=== PATIENT | female | born 1980 | race Caucasian/White ===

== ENCOUNTER → 2017-01-02 | Outpatient (CLI) | payer OTHER ==
[~2017-01-02] MED LIST: CRAN1CAP14 PO; LACT3000 PO; OMEP20TA14 PO; OXYC-57 PO; PSYL48.59 PO
[2017-01-02 18:20] LABS: CHOLESTEROL/HDL RATIO 4.2; THYROID STIMULATING HORMONE 1.78 uIu/ml (0.300-4.500)
== END | disposition home or self-care (01) ==
LOC: C.LABMFLN 12:46
PROVIDERS: ATTEND Family Medicine
DX: R53.83 Other fatigue (principal); Z13.220 Encounter for screening for lipoid disorders

== ENCOUNTER → 2017-04-05 | Outpatient (CLI) | payer OTHER ==
[2017-04-05 17:17] LABS: CALCIUM 8.8 mg/dl (8.5-10.1)
[2017-04-05 17:25] LABS: BLOOD UREA NITROGEN 10 mg/dl (7-18); BUN/CREATININE RATIO 14.1 (10-20); CARBON DIOXIDE 21 mmol/L (21-32); CHLORIDE 108 mmol/L (98-107); CREATININE 0.68 mg/dl (0.60-1.20); GLUCOSE 84 mg/dl (70-99); SODIUM 138 mmol/L (136-145)
== END | disposition home or self-care (01) ==
LOC: C.LAB1850 14:16
PROVIDERS: ATTEND Obstetrics & Gynecology
DX: Z01.818 Encounter for other preprocedural examination (principal)

== ENCOUNTER → 2017-04-05 | Outpatient (CLI) | payer OTHER | END | disposition home or self-care (01) | LOC: C.PAPS 10:02 | PROVIDERS: ATTEND Obstetrics & Gynecology | DX: Z01.419 Encounter for gynecological examination (general) (routine) without abnormal findings (principal) ==

== ENCOUNTER → 2017-04-22 | Day surgery (SDC) | payer OTHER ==
[2017-04-10 11:32] VITALS: Ht 165.1 cm; Wt 81.8 kg
--- NOTE | 2017-04-19 08:16 | HISTORY & PHYSICAL EXAMINATION ---
DATE OF ADMISSION: 04/22/2017 CHIEF COMPLAINT: Desires sterilization. HISTORY OF PRESENT ILLNESS: The patient is a 37-year-old white female, 1, para 0-1-0-1, whose last menstrual period was 03/12/2017. The patient is presently using condoms for contraception. The patient desires permanent sterilization. She has a history of severe preeclampsia with her only and delivered by emergency , prematurely, at 28 weeks. In addition, she had postoperative complications. The patient's last Pap smear was 04/05/2017 and this was negative. ALLERGIES: THE PATIENT LISTS ZITHROMAX, MORPHINE DERIVATIVES INCLUDING VICODIN, NITROFURANTOIN, PENICILLINS, CEFUROXIME IN ADDITION TO LACTOSE AND CAFFEINE. MEDICATIONS: She takes 1 Centrum tablet daily in addition to cranberry plus vitamin C and Lactaid. ILLNESSES: She reports she does have a heart murmur. In addition, a history of migraine headaches and kidney stones. She has had peptic ulcer disease and, as noted above, she has a history of preeclampsia. PAST SURGICAL HISTORY: She has undergone laparoscopic cholecystectomy and appendectomy in addition to the emergency section. FAMILY HISTORY: Her mother had endometriosis. Also, hypertension, kidney stones, multiple sclerosis, history of seizures and alcohol abuse. Her father has a history of alcohol abuse and hypertension. SOCIAL HISTORY: The patient is . She denies smoking cigarettes or drinking alcohol. PHYSICAL EXAMINATION: VITAL SIGNS: Height 5 feet 5 inches, weight 180 pounds. HEENT: Grossly within normal limits. NECK: Supple without masses. CHEST: Her lungs are clear without wheezing. HEART: Regular rate and rhythm. No murmurs, gallops or rubs appreciated. BREASTS: Nontender with no masses palpable. No lymphadenopathy and no skin changes. ABDOMEN: Soft and nontender with no abdominal masses, no hepatosplenomegaly. The patient does have scars from prior surgeries. PELVIC: External genitalia normal. Vagina pink and stimulated. Cervix pink and closed with no lesions visible. Uterus is within normal limits in size and nontender. Adnexa nontender with no masses palpable. EXTREMITIES: No cyanosis, clubbing or edema. IMPRESSION: A 37-year-old white female, 1, para 0-1-0-1, who desires permanent sterilization. PLAN: The patient is for laparoscopic bilateral tubal sterilization by ring placement, bipolar cauterization or excision. The patient is aware of the risks of bleeding, infection, injury to internal organs, risk of ectopic , possible failure of the procedure, risk of additional surgery or treatment, re-hospitalization and also regret of having the procedure done. She is aware of the alternatives of using other methods of contraception and the alternatives of doing nothing. The patient wishes to proceed with the laparoscopic tubal as planned. LISETTE
[~2017-04-22] VITALS: Ht 165.1 cm; Wt 81.8 kg
[~2017-04-22] MED LIST changes: +ATROPINE SULFATE 0.1 MG/ML 5ML SYR IV PRN; +BUPIVACAINE 0.5 % 5 MG/1 ML MPF 30ML VIAL ONE; +DEXAMETHASONE SOD INJ 4 MG/ML VIAL ONE; +EpHEDrine SULFATE 50MG/5ML SYR ONE; +EpHEDrine SULFATE INJ 50 MG/ML AMP IV PRN; +FENTANYL CITRATE INJ 50 MCG/1 ML 2 ML VIAL IV PRN; +FENTANYL CITRATE INJ 50 MCG/1 ML 2 ML VIAL ONE; +GLYCOPYRROLATE INJ 0.2 MG/ML VIAL ONE; +IBUPROFEN 600 MG TAB PO PRN; +KETOROLAC TROMETHAMINE 30 MG/ML VIAL ONE; +LACTATED RINGER'S 1000ML 1,000 ML IV SCH; +LIDOCAINE HCL 2% 2 ML VIAL (20MG/ML) ONE; +MIDAZOLAM HCL 1 MG/ML 2ML VIAL ONE; +NEOSTIGMINE METHYLSULFATE 5 MG/5 ML SYR ONE; +ONDANSETRON INJ 2 MG/ML 2 ML VIAL IV PRN; +ONDANSETRON INJ 2 MG/ML 2 ML VIAL ONE; +OXYCODONE/ACETAMINOPHEN 5-325 TAB PO PRN; +PROPOFOL IV EMULSION 10 MG/ML 20 ML VIAL IV ONE; +ROCURONIUM BROMIDE 10 MG/ML 5 ML VIAL ONE; +SODIUM CHLORIDE 0.9% 1000ML 1,000 ML IV SCH
--- NOTE | 2017-04-22 06:44 | History & Physical Bridge - SC ---
H&P Re-Evaluation Bridge Note: I have examined the patient, reviewed the History & Physical and in the interval since the performance of the History & Physical I have noted the following changes of clinical significance: No changes noted
--- NOTE | 2017-04-22 08:52 | [facility] Post Operative Brief Note ---
Immediate Operative Summary Operative Date Apr 22, 2017. Pre-Operative Diagnosis Desires Sterilization Post-Operative Diagnosis Same Procedure(s) Performed Laparoscopic Tubal Sterilization Surgeon Dr. Castro Shoemaker Custom Surgeon(s) None Estimated Blood Loss 10ml Findings See dictated note. Specimens None Complication(s) None Disposition Recovery Room / PACU
--- NOTE | 2017-04-22 09:19 | Discharge Instructions-SurgCtr ---
Discharge Instructions Date of Service Apr 22, 2017. Visit Reason for Visit: Encounter For Female Sterilization Discharge Discharge Diagnosis / Problem: Desires sterilization. Discharge Goals Goal(s): Therapeutic intervention Activity Recommendations Activity Limitations: per Instructions/Follow-up section Anesthesia . Post Anesthesia Instructions: If you have had General Anesthesia or IV Sedation: * Do not drive today. * Resume driving when surgeon permits. * Do not make important decisions or sign legal documents today. * Call surgeon for: 1. Temperature elevations greater than 101 degrees F. 2. Uncontrollable pain. 3. Excessive bleeding. 4. Persistent nausea and vomiting. 5. Medication intolerance (nausea, vomiting or rash). * For nausea and vomiting use only clear liquids such as: tea, soda, bouillon until nausea subsides, then gradually increase diet as tolerated. * If you have any concerns or questions, call your surgeon's office. If physician is unavailable and it is an emergency, call 911 or go to the nearest emergency room. . Instructions / Follow-Up Instructions / Follow-Up ACTIVITY RECOMMENDATIONS: * Rest the first 2-3 days. You should be back to your normal activity levels by day 3. * No heavy lifting for 2 weeks. * No intercourse, tampons or douching for 2 weeks. * You may shower the next day. * Do not drive anytime that you are taking narcotic pain medicines. RETURN TO SCHOOL/WORK: * May return to school or work after 3 days. DIET: Nausea may occur in the immediate post-operative period. If so, take clear liquids such as tea, bouillon, apple juice until all nausea has subsided, then resume usual diet. MEDICATIONS: Resume previous medications unless instructed otherwise by your surgeon. For moderate to severe pain, take a percocet every 4-6 hours. If the pain is not severe, you may take the below medications. Ibuprofen 200mg 2-3 tablets every 4-6 hours as needed -- OR -- Aleve 2 tablets every 8-12 hours as needed for post-operative discomfort Medications are over the counter. Tylenol may be used if above medications are contraindicated or not preferred. Medication should be taken with food or milk. Do not take on an empty stomach. SPECIAL CARE INSTRUCTIONS: * Check temperature twice daily for one week. report any elevation over 101 degrees. * You may experience some vagina spotting and/or bleeding. This is normal for 1 -2 weeks and should not be heavier than a normal period. If it is unusual in amount, call your physician. * Post-operative discomfort may consist of a sore throat, a "bloated" feeling and pain in the shoulders. these are normal symptoms, which usually only last for 2-3 days. * Remove band-aids tomorrow and shower. Leave steri-strip in place. If it falls off, that is OK. There is no need to replace band-aids unless there is drainage or discomfort. FOLLOW UP VISIT: Call your doctor's office for a post-operative 2-4 week visit if not already scheduled. Dr Castro [phone] to schedule appointment. Diet Recommendations Home Diet: resume previous diet Procedures Procedures Performed: Laparoscopic Tubal Sterilization Pending Studies Studies pending at discharge: no Medical Emergencies . Who to Call and When: Medical Emergencies: If at any time you feel your situation is an emergency, please call 911 immediately. . Non-Emergent Contact Non-Emergency issues call your: Chairperson Anesthesiology Call Non-Emergent contact if: temperature is above 100.5, your pain is worsening, wound has increased drainage, wound has increased redness, wound has increased pain, you have any medication questions . . "Provider Documentation" section prepared by Macrina Castro. . [place] Drug Monitoring Program Search Results: patient reviewed within database, no issues identified
--- NOTE | 2017-04-22 09:34 | Anesthesia Progress Nt - [facility] ---
Anesthesia Post Op Note Date & Time Apr 22, 2017 at 09:33 Vital Signs Pain Intensity: 5.0 Vital Signs Past 12 Hours Date Time Temp Pulse Resp B/P (MAP) Pulse Ox O2 Delivery O2 Flow Rate FiO2 04/22/17 09:11 118/82 04/22/17 09:09 77 20 100 04/22/17 09:09 75 20 04/22/17 09:06 118/80 04/22/17 09:04 79 21 100 04/22/17 09:04 76 21 04/22/17 09:01 117/82 04/22/17 08:59 75 118/85 04/22/17 08:59 36.2 72 16 118/85 100 Mask 5 04/22/17 06:40 36.8 67 18 147/84 (105) 96 Room Air Notes Mental Status: alert / awake / arousable, participated in evaluation Pt Amnestic to Procedure: Yes Nausea / Vomiting: adequately controlled Pain: adequately controlled Airway Patency, RR, SpO2: stable & adequate BP & HR: stable & adequate Hydration State: stable & adequate Anesthetic Complications: no major complications apparent
[2017-04-22 09:56] VITALS: TEMP 36.3
--- NOTE | 2017-04-22 10:13 | OPERATIVE REPORT ---
DATE OF OPERATION: 04/22/2017 PREOPERATIVE DIAGNOSIS: Desires sterilization. 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 PROCEDURE: Laparoscopic tubal sterilization by cautery. SURGEON: Dr. Macrina Castro. ANESTHESIA: General. ANESTHESIOLOGIST: Dr. Vasquez. DESCRIPTION OF PROCEDURE: The patient was taken to the operating room, where general anesthesia was administered. After an adequate level was obtained, she was placed in dorsal lithotomy position. Abdomen, vulva, vagina, and cervix were prepped with Betadine solution. The patient was draped. Hulka clamp was inserted into the uterus and red rubber catheter was used to drain the bladder and left in place during the procedure. An incision was then made extending from the lower umbilicus for approximately 4 cm. Subcutaneous tissue was entered using the scalpel. The fascia was identified, elevated with Mauricio clamps and an incision made vertically extending 3-4 cm. Peritoneum was identified and opened using Metzenbaum scissors. The laparoscopic sheath was placed directly and the abdomen insufflated with carbon dioxide. Laparoscope was used to confirm intraperitoneal position of the scope. Of note, there was a thick adhesion of omentum to the anterior abdominal wall along the midline and just to the right in the mid abdomen. The uterus was identified, but seemed to either have a fibroid extending off into the left cornual area or this may actually represent a malformation. In fact the findings could be consistent with a rudimentary uterine horn on the patient's right. Also of note is that the distal portion of the left tube appeared larger than a normal tube. Ovaries appeared normal, although the entire surface of each ovary was not visible. The round ligaments were identified. The left fallopian tube was identified at the junction with the cornua. The right fallopian tube was identified and from the uteroovarian ligament and the right round ligament, but there appeared to be no distal right fallopian tube. The tube appeared to end in its mid section. An attempt was made to place the trocar and sheath for the banding instrument. It was not possible to visualize that area due to the thick adhesions. At this point, a decision was made to perform the sterilization using Kleppinger forceps and cautery. The left fallopian tube was then identified once more and 3 contiguous sections were cauterized. The proximal end of the right fallopian tube was identified and 2 contiguous areas were cauterized. Photos were taken of the findings. At this point, the procedure was ended. Gas was allowed to escape from the abdomen. The fascia was closed with interrupted sutures of 0 Vicryl. Skin was closed with interrupted sutures of 4-0 Vicryl. Steri-Strips and bandage was placed at the umbilicus. A Band-Aid was placed at the suprapubic incision, where essentially just the skin and subcutaneous tissues had been incised. The patient tolerated the procedure well. ESTIMATED BLOOD LOSS: 10 mL. I attest to the content of the Intraoperative Record and any orders documented therein. Any exceptions are noted below. JULIANAD
[2017-04-22 10:32] VITALS: BP 120/85; PULSE 66; O2SAT 99
== END | disposition home or self-care (01) ==
LOC: X.SURG 06:08
PROVIDERS: ATTEND Obstetrics & Gynecology
DX: Z30.2 Encounter for sterilization (principal); R01.1 Cardiac murmur, unspecified; Z79.899 Other long term (current) drug therapy

== ENCOUNTER → 2017-08-16 | Outpatient (CLI) | payer OTHER ==
[~2017-08-16] MED LIST changes: -ATROPINE SULFATE 0.1 MG/ML 5ML SYR IV PRN; -BUPIVACAINE 0.5 % 5 MG/1 ML MPF 30ML VIAL ONE; -DEXAMETHASONE SOD INJ 4 MG/ML VIAL ONE; -EpHEDrine SULFATE 50MG/5ML SYR ONE; -EpHEDrine SULFATE INJ 50 MG/ML AMP IV PRN; -FENTANYL CITRATE INJ 50 MCG/1 ML 2 ML VIAL IV PRN; -FENTANYL CITRATE INJ 50 MCG/1 ML 2 ML VIAL ONE; -GLYCOPYRROLATE INJ 0.2 MG/ML VIAL ONE; -IBUPROFEN 600 MG TAB PO PRN; -KETOROLAC TROMETHAMINE 30 MG/ML VIAL ONE; -LACTATED RINGER'S 1000ML 1,000 ML IV SCH; -LIDOCAINE HCL 2% 2 ML VIAL (20MG/ML) ONE; -MIDAZOLAM HCL 1 MG/ML 2ML VIAL ONE; -NEOSTIGMINE METHYLSULFATE 5 MG/5 ML SYR ONE; -ONDANSETRON INJ 2 MG/ML 2 ML VIAL IV PRN; -ONDANSETRON INJ 2 MG/ML 2 ML VIAL ONE; -OXYCODONE/ACETAMINOPHEN 5-325 TAB PO PRN; -PROPOFOL IV EMULSION 10 MG/ML 20 ML VIAL IV ONE; -ROCURONIUM BROMIDE 10 MG/ML 5 ML VIAL ONE; -SODIUM CHLORIDE 0.9% 1000ML 1,000 ML IV SCH
--- NOTE | 2017-08-16 13:44 | MAMMOGRAPHY REPORT ---
BILATERAL DIGITAL DIAGNOSTIC MAMMOGRAM TOMOSYNTHESIS WITH CAD AND TARGETED LEFT ULTRASOUND: 7 CLINICAL HISTORY: The patient reports a palpable lump with associated overlying skin erythema for heladio roximately one week. She notes that the lump is nontender and may be slightly decreased since she fi rst felt it. TECHNIQUE: Breast tomosynthesis in addition to standard 2D mammography was performed. Current study was also evaluated with a Computer Aided Detection (CAD) system. Bilateral CC and MLO 2-D and tomosy nthesis images were obtained. COMPARISON: No prior exams were available for comparison. BREAST COMPOSITION: There are scattered areas of fibroglandular density in both breasts. FINDINGS: A triangle marker shipley the site of the palpable lump in the left upper outer quadrant. N o suspicious masses or other suspicious mammographic abnormalities are noted in this region. There i s an oval circumscribed 10 mm mass within the left medial breast seen on the cc view only. The remai nder of both breasts demonstrate no suspicious masses, calcifications, or areas of architectural dist ortion. Scattered bilateral benign-appearing calcifications are noted. Targeted ultrasound was performed of the area of the palpable lump and associated skin erythema point ed out by the patient, in the left breast at 3:00, approximately 5 cm from the nipple. At this site there is an intradermal oval circumscribed anechoic cystic 3 x 3 mm mass with mild surrounding skin t hickening. Given the intradermal location, the mass is benign and likely represents an inflamed/infe cted sebaceous/epidermal inclusion cyst or other benign skin process. Targeted ultrasound was performed of the left medial breast in the region of the circumscribed mammog raphic mass. In the left breast at 9:00, 3 cm from the nipple, there is an oval circumscribed hypoec hoic solid mass which measures 10 x 10 x 5 mm. This corresponds with the circumscribed mammographic mass and is indeterminate. Recommend ultrasound guided core needle biopsy for further evaluation. IMPRESSION: ACR BI-RADS CATEGORY 4: SUSPICIOUS, TARGETED ULTRASOUND ACR BI-RADS CATEGORY 4: SUSPICIO US 1. At the site of the palpable lump with associated skin erythema, there is an intradermal 3 mm cyst ic mass. Given the dermal location, the finding is benign and likely represents an inflamed or infec delmar sebaceous/epidermal inclusion cyst or other benign skin process. Recommend clinical follow-up. 2. Incidental 10 mm circumscribed hypoechoic mass in the left breast at 9:00. The mass is indetermi amanda and ultrasound-guided core needle biopsy is recommended for further evaluation. This likely rep resents a fibroadenoma. A phone call was made to the physician's office to confirm faxed results were received. The patient has been verbally notified of the results. She tentatively scheduled the biopsy before leaving the [facility]. Approximately 10% of breast cancers are not detected with mammography. A negative mammographic report should not delay biopsy if a clinically suggestive mass is present. Melida Mckenzie M.D. ah/:08/16/2017 09:34:31 Ore Feeder: Rosemarie SOUZA(R)(M), [facility] letter sent: Abnormal 4/5 BI-RADS Code: ACR BI-RADS Category 4: Suspicious Ultrasound BI-RADS: ACR BI-RADS Category 4: Suspici ous
== END | disposition home or self-care (01) ==
LOC: C.MAMM 08:54
PROVIDERS: ATTEND Physician Assistant
DX: N63.20 Unspecified lump in the left breast, unspecified quadrant (principal)

== ENCOUNTER → 2017-08-21 | Outpatient (CLI) | payer OTHER ==
--- NOTE | 2017-08-21 10:31 | Discharge Instructions ---
Discharge Instructions Procedure Procedure Date: Aug 21, 2017. Reason for visit: Left Mass. Discharge Discharge Date: Aug 21, 2017. Discharge Diagnosis: status post breast biopsy Instructions Activity Recommendations: Additional Limitations (see below) Return to School/Work: no limitations Recommended Home Diet: No Limitations Provider Instructions: ACTIVITY RECOMMENDATIONS: * No lifting, pushing, pulling or exercising the affected side for three days. RETURN TO SCHOOL/WORK: * You may return to work/school after the procedure, but do not perform any strenuous activities for 24 to 48 hours. MEDICATIONS: * Tylenol (two 325 mg) every four to six hours if needed for mild pain (if not allergic to Tylenol). DIET: * Resume previous diet. SPECIAL CARE INSTRUCTIONS: * Keep biopsy site dry for 24 hours. May shower after 24 hours, but do not soak (bathe) incision. * May remove Tegaderm (plastic patch) tomorrow AFTER showering. * Leave the steri-strips on for one week. Allow the steri-strips to fall off by themselves. If not off after one week, you may remove them. You may place a Bandaid crosswise over the strips, if desired. * Apply ice 10 minutes on and 10 minutes off as needed. * Wear a bra at bedtime to sleep more comfortably for 2-3 days. * Your referring physician should have the results after approximately 5 to 7 business days. * Call for unusual bleeding, fever, drainage, etc or if you have any questions call during normal business hours or after hours call Dr Mckenzie, . FOLLOW UP VISIT: Follow-up with Referring Physician as scheduled. Allergies Coded Allergies: Hydrocodone (Verified Allergy, Mild, "makes me goofy", 04/22/17) Acetaminophen (Verified Allergy, Unknown, TACHYCARDIA, 04/22/17) Azithromycin (Verified Allergy, Unknown, N/V, 04/22/17) Caffeine (Verified Allergy, Unknown, BREATHING PATHAGES FEEL LIKE SHUT DOWN, 04/22/17) IN HIGH AMOUNTS Cefuroxime (Verified Allergy, Unknown, RASH, 04/22/17) Lactose (Verified Allergy, Unknown, LACTOSE INT., 04/22/17) Morphine (Verified Allergy, Unknown, ABD. PAIN, 04/22/17) Nitrofurantoin (Verified Allergy, Unknown, N/V BP ELEVATED, 04/22/17) Oxycodone (Verified Allergy, Unknown, TACHYCARDIA, 04/22/17) Penicillins (Verified Allergy, Unknown, HIVES, 04/22/17) Noe [facility] Recommendations: Call your doctor if: * Temperature above 101 degrees * Pain not relieved by pain medicine ordered * There is increased drainage or redness from any incision * You have any unanswered questions or concerns. Your Doctors Instructions noted above were prepared by provider Melida Mckenzie. Patient Signature Section: Patient Instructions Signature Page Nancy Alba Patient (or Guardian) Signature/Date: I have read and understand the instructions given to me by my caregivers. Caregiver/RN/Doctor Signature/Date: The above-named patient and/or guardian has received patient instructions on this date. + Original Patient Signature Page (only) stays with chart. Please make copy for patient.
--- NOTE | 2017-08-21 14:23 | MAMMOGRAPHY REPORT ---
ULTRASOUND GUIDED BIOPSY LEFT BREAST: 08/21/2017 CLINICAL HISTORY: Left 9:00 breast mass. PATIENT CONSENT: The procedure, risks and benefits were discussed with the patient and informed writt en consent was obtained. A timeout was performed immediately prior to the procedure. PROCEDURE DESCRIPTION: With ultrasound guidance, aseptic technique, and lidocaine as the local anesth etic (1% lidocaine to anesthetize the skin and 1% lidocaine with epinephrine to anesthetize the deepe r tissues), the mass of concern in the left 9:00 breast was sampled 4 times with a 14-gauge Achieve b iopsy needle. Immediately thereafter, with ultrasound guidance, aseptic technique, and lidocaine as the local anesthetic, a metallic localizer clip was placed at the biopsy site. Direct pressure was a pplied to the site immediately post procedure and hemostasis was achieved. Postprocedure unilateral mammograms were performed to confirm clip placement. The patient tolerated the procedure without com plication. She was given wound care instructions. The specimens were sent to pathology for analysis. COMPARISON: Comparison is made to exams dated: 08/16/2017 mammogram and 08/16/2017 ultrasound - [facility]. IMPRESSION: ULTRASOUND GUIDED BIOPSY Ultrasound guided core needle biopsy of the left 9:00 breast mass, with clip placement. The patient will receive pathology results from her referring provider. Melida Mckenzie M.D. /:08/21/2017 10:32:20 Restaurant And Bar Manager: Rosaura DIAZ)([place]), [facility]
--- NOTE | 2017-08-21 14:26 | MAMMOGRAPHY REPORT ---
UNILATERAL LEFT DIGITAL DIAGNOSTIC MAMMOGRAM TOMOSYNTHESIS: 08/21/2017 CLINICAL HISTORY: Status post left breast biopsy. TECHNIQUE: Breast tomosynthesis in addition to standard 2D mammography was performed. Postprocedura l left CC and ML tomosynthesis images including C views were obtained. COMPARISON: Comparison is made to exams dated: 08/16/2017 ultrasound and 08/16/2017 mammogram - [facility]. BREAST COMPOSITION: There are scattered areas of fibroglandular density in the left breast. FINDINGS: A new biopsy marker clip is seen at the site of the biopsied mass in the left 9:00 breast. No significant postbiopsy hematoma is seen. IMPRESSION: POST PROCEDURE IMAGING FOR MARKER PLACEMENT New biopsy marker clip status post left breast biopsy. Pathology results are pending. Approximately 10% of breast cancers are not detected with mammography. A negative mammographic report should not delay biopsy if a clinically suggestive mass is present. Melida Mckenzie M.D. ah/:08/21/2017 10:39:41 Energy Advisor: Rosaura DIAZ)([place]), [facility] BI-RADS Code: Post Procedure Imaging For Marker Placement
== END | disposition home or self-care (01) ==
LOC: C.MAMM 09:53
PROVIDERS: ATTEND Physician Assistant
DX: D24.2 Benign neoplasm of left breast (principal)

== ENCOUNTER 2018-02-22 22:37 | Emergency (ER) | payer OTHER ==
[~2018-02-22] VITALS: Ht 165.1 cm; Wt 81.6 kg
[~2018-02-22 22:37] MED LIST changes: -OXYC-57 PO
[2018-02-22 22:45] VITALS: TEMP 36.7; Ht 165.1 cm; Wt 81.6 kg
--- NOTE | 2018-02-22 23:23 | EMERGENCY ROOM VISIT NOTE ---
History Report prepared by Leila: Jaret Davey Under the Supervision of: Dr. Shameka Pinto D.O. First contact with patient: 23:00 Chief Complaint: HYPOTENSION Stated Complaint: LOW BP, FATIGUE, DIZZY, CHEST TIGHTNESS History of Present Illness The patient is a 37 year old female who presents to the Emergency Room with complaints of intermittent general low blood pressure since September 2017. She states that she has been feeling fatigued and dizzy over the last two days. She reports that she feels so lightheaded that she might pass out. She notes tightness in her chest. She reports monitoring her blood pressure once a day, because her has to in order to control his HTN. She denies any history of HTN, though reports her family has a history of HTN. She reports having preeclampsia while with her son. She has a four year old son, in which she reports being able to keep up with him without issue. She notes her normal blood pressure was 120/70 prior to September 2017. She states that her blood pressure was recorded at 96/68 today. She had chicken fajita and mashed potatoes for dinner. She states that she took a walk and went grocery shopping today. She states that she is allergic to caffeine; she experiences heart palpitations and shortness of breath. She avoids chocolate, soda, and tea. She does drink herbal tea. She takes Prilosec for heartburn. She denies any leg cramping or leg swelling. 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 Her LNMP was two weeks ago. Source of History: patient Onset: September 2017 Position: other (general) Quality: other (low blood pressure) Timing: intermittent Associated Symptoms: + chest pain (tightness), + fatigue Note: Notes lightheadedness, dizziness, and feelings of near-syncope. Denies any leg cramping or leg swelling. Review of Systems See HPI for pertinent positives & negatives. A total of 10 systems reviewed and were otherwise negative. Past Medical & Surgical Medical Problems: (1) Acid reflux (2) Kidney stone (3) Preeclampsia Family History Hypertension Kidney disease Kidney stones Seizures Social History Smoking Status: Never Smoker Smokeless Tobacco Use: No Alcohol Use: none Drug Use: none Marital Status: in relationship Housing Status: lives with significant other Occupation Status: unemployed Current/Historical Medications Scheduled Black Pepper-Turmeric (Turmeric Curcumin 3-500 mg), 1 CAP PO DAILY Cranberry-Vitamin C-Vitamin E (Cranberry Plus Vitamin C), 1 CAP PO DAILY/PRN Lactase (Lactaid), 1 TAB PO DAILY Omeprazole Magnesium (Prilosec Otc), 20 MG PO DAILY Scheduled PRN Psyllium (Metamucil), 1 DOSE PO DAILY PRN for Constipation Allergies Coded Allergies: Hydrocodone (Verified Allergy, Mild, "makes me goofy", 04/22/17) Acetaminophen (Verified Allergy, Unknown, TACHYCARDIA, 04/22/17) Azithromycin (Verified Allergy, Unknown, N/V, 04/22/17) Caffeine (Verified Allergy, Unknown, BREATHING PATHAGES FEEL LIKE SHUT DOWN, 04/22/17) IN HIGH AMOUNTS Cefuroxime (Verified Allergy, Unknown, RASH, 04/22/17) Lactose (Verified Allergy, Unknown, LACTOSE INT., 04/22/17) Morphine (Verified Allergy, Unknown, ABD. PAIN, 04/22/17) Nitrofurantoin (Verified Allergy, Unknown, N/V BP ELEVATED, 04/22/17) Oxycodone (Verified Allergy, Unknown, TACHYCARDIA, 04/22/17) Penicillins (Verified Allergy, Unknown, HIVES, 04/22/17) Physical Exam Vital Signs Date Time Temp Pulse Resp B/P (MAP) Pulse Ox O2 Delivery O2 Flow Rate FiO2 02/23/18 00:30 65 16 108/75 98 Room Air 02/23/18 00:00 61 16 108/76 98 Room Air 02/22/18 23:47 62 16 106/74 97 Room Air 02/22/18 23:45 68 02/22/18 23:20 65 118/91 81 115/91 78 118/88 02/22/18 22:45 36.7 73 18 122/88 100 Room Air Physical Exam HEENT: Head - normocephalic and atraumatic Pupils are equal, round, and reactive to light. Extraocular eye muscles are intact, and sclera are anicteric. Nose - moist nasal mucosa without discharge. Mouth - moist buccal mucosa. Oropharynx is nonerythematous and there is no tonsillar exudate or edema noted. Neck: Supple; no JVD, nuchal rigidity, cervical lymphadenopathy, or auscultated bruits. Heart: Regular rate and rhythm. There is a normal S1 and S2 with no murmurs, clicks, or gallops appreciated. Lungs: Clear to auscultation bilaterally with no wheezes, rales, or rhonchi. Abdomen: Soft, completely nontender, nondistended, with good bowel sounds. There are no palpable pulsatile masses or hepatosplenomegaly. There is no guarding, rigidity, or rebound noted. Extremities: No evidence of cyanosis, clubbing, or edema. There are easily palpable peripheral pulses. Skin: warm and dry with good turgor and no rashes. Medical Decision & Procedures Laboratory Results 02/22/18 23:15 Red Blood Count 4.25, Mean Corpuscular Volume 86.4, Mean Corpuscular Hemoglobin 31.1, Mean Corpuscular Hemoglobin Concent 36.0, Mean Platelet Volume 8.8, Neutrophils (%) (Auto) 42.1, Lymphocytes (%) (Auto) 47.4, Monocytes (%) (Auto) 8.0, Eosinophils (%) (Auto) 1.9, Basophils (%) (Auto) 0.4, Neutrophils # (Auto) 3.47, Lymphocytes # (Auto) 3.91, Monocytes # (Auto) 0.66, Eosinophils # (Auto) 0.16, Basophils # (Auto) 0.03 02/22/18 23:15 Test 02/22/18 23:15 02/22/18 23:30 White Blood Count 8.25 K/uL (4.8-10.8) Red Blood Count 4.25 M/uL (4.2-5.4) Hemoglobin 13.2 g/dL (12.0-16.0) Hematocrit 36.7 % (37-47) Mean Corpuscular Volume 86.4 fL (80-100) Mean Corpuscular Hemoglobin 31.1 pg (25-34) Mean Corpuscular Hemoglobin Concent 36.0 g/dl (32-36) Platelet Count 291 K/uL (130-400) Mean Platelet Volume 8.8 fL (7.4-10.4) Neutrophils (%) (Auto) 42.1 % Lymphocytes (%) (Auto) 47.4 % Monocytes (%) (Auto) 8.0 % Eosinophils (%) (Auto) 1.9 % Basophils (%) (Auto) 0.4 % Neutrophils # (Auto) 3.47 K/uL (1.4-6.5) Lymphocytes # (Auto) 3.91 K/uL (1.2-3.4) Monocytes # (Auto) 0.66 K/uL (0.11-0.59) Eosinophils # (Auto) 0.16 K/uL (0-0.5) Basophils # (Auto) 0.03 K/uL (0-0.2) RDW Standard Deviation 37.4 fL (36.4-46.3) RDW Coefficient of Variation 11.9 % (11.5-14.5) Immature Granulocyte % (Auto) 0.2 % Immature Granulocyte # (Auto) 0.02 K/uL (0.00-0.02) Anion Gap 5.0 mmol/L (3-11) Est Creatinine Clear Calc Drug Dose 110.3 ml/min Estimated GFR () 121.1 Estimated GFR (Non- 104.5 BUN/Creatinine Ratio 22.1 (10-20) Calcium Level 8.4 mg/dl (8.5-10.1) Thyroid Stimulating Hormone (TSH) 7.350 uIu/ml (0.300-4.500) Free Thyroxine 1.08 ng/dl (0.80-1.60) Free Triiodothyronine 3.33 pg/ml (2.30-4.20) Urine Color YELLOW Urine Appearance CLEAR (CLEAR) Urine pH 8.0 (4.5-7.5) Urine Specific Jakin 1.031 (1.000-1.030) Urine Protein NEG (NEG) Urine Glucose (UA) NEG (NEG) Urine Ketones TRACE (NEG) Urine Occult Blood 2+ (NEG) Urine Nitrite NEG (NEG) Urine Bilirubin NEG (NEG) Urine Urobilinogen NEG (NEG) Urine Leukocyte Esterase TRACE (NEG) Urine WBC (Auto) 1-5 /hpf (0-5) Urine RBC (Auto) 0-4 /hpf (0-4) Urine Hyaline Casts (Auto) 1-5 /lpf (0-5) Urine Epithelial Cells (Auto) >30 /lpf (0-5) Urine Bacteria (Auto) NEG (NEG) Urine Test NEG (NEG) Laboratory results per my review. Medications Administered Medications (Trade) Dose Ordered Sig/Moiz Route Start Time Stop Time Status Last Admin Dose Admin Sodium Chloride 500 ml @ 999 mls/hr Q31M STAT IV 02/23/18 00:08 02/23/18 00:38 DC 02/23/18 00:27 999 MLS/HR ECG Per My Interpretation Indication: chest pain Rate (beats per minute): 70 Rhythm: normal sinus Findings: no ectopy, other (Flattened T waves laterally ) Comparison ECG Date: Changes compared to 05/2013 ED Course 2310: Past medical records reviewed. The patient was evaluated in room B5. A complete history and physical exam was performed. IV lock was established. Labs were drawn as above. 0000: The patient's orthostatics are unremarkable. Her vitals are normal and stable. 0008: Ordered Sodium Chloride 500 ml @ 999 mls/hr IV. 0020: I reassessed the patient at this time. I discussed the results and treatment plan with the patient. I answered all pertaining questions that she had. She expressed understanding and verbalized agreement. The patient will be discharged home. Medical Decision The patient is a 37 year old female who presents to the ED with intermittent low blood pressure. Differential diagnosis includes orthostasis, hypovolemia, thyroid dysfunction, electrolyte abnormality. Lab results showed: No leukocytosis. Stable H&H. Normal renal function. Gluc 108. TSH 7.350. negative. Urine: 2+ occult blood, trace ketones, trace leukocyte esterase, epithelial cells >30. This is a 37-year-old female patient presents to the emergency department with fatigue and intermittent episodes of low blood pressure. It seems that the patient follows her blood pressure very closely at home on a routine basis. She has noticed in the recent past that blood pressure seems to be lower than usual and she is having symptoms of fatigue. The patient's blood pressure was completely normal throughout her stay here in the emergency department. Her pulse pressures were also normal. The patient had an elevated TSH which was concerning for hypothyroidism. This could explain why the patient is feeling fatigued. I have asked her to follow- up closely with her PCP with regards to thyroid replacement. I have asked the patient only check her blood pressure at home if she is symptomatic or approximately 2 or 3 times a week as opposed to multiple times in a day. If symptoms worsen, she is to return to the emergency department. Medication Reconcilliation Current Medication List: was personally reviewed by me Blood Pressure Screening Patient's blood pressure: Normal blood pressure Impression Primary Impression: Fatigue Additional Impression: Hypothyroidism Scribe Attestation The scribe's documentation has been prepared under my direction and personally reviewed by me in its entirety. I confirm that the note above accurately reflects all work, treatment, procedures, and medical decision making performed by me. Departure Information Dispostion Home / Self-Care Referrals Abdulkadir Jacobs M.D. (PCP) Forms HOME CARE DOCUMENTATION FORM, IMPORTANT VISIT INFORMATION, WORK / SCHOOL INSTRUCTIONS Patient Instructions ED Hypothyroidism, My [facility] Additional Instructions Take plenty of clear liquids Take BP 2-3 times a week. Follow up with your PCP on Saturday about hypothyroidism Problem Qualifiers Primary Impression: Fatigue Fatigue type: unspecified Qualified Codes: R53.83 - Other fatigue Additional Impression: Hypothyroidism Hypothyroidism type: unspecified Qualified Codes: E03.9 - Hypothyroidism, unspecified
[2018-02-22 23:24] LABS: BASO % 0.4 %; BASO ABS # 0.03 K/uL (0-0.2); EOS % 1.9 %; EOS ABS # 0.16 K/uL (0-0.5); HEMATOCRIT 36.7 % (37-47); HEMOGLOBIN 13.2 g/dL (12.0-16.0); IG# 0.02 K/uL (0.00-0.02); LYMPH % 47.4 %; LYMPH ABS # 3.91 K/uL (1.2-3.4); MEAN CELL VOLUME 86.4 fL (80-100); MEAN CORPUSCULAR HEMOGLOBIN 31.1 pg (25-34); MEAN PLATELET VOLUME 8.8 fL (7.4-10.4); MONO ABS # 0.66 K/uL (0.11-0.59); NEUT % 42.1 %; NEUT ABS # 3.47 K/uL (1.4-6.5); PLATELET COUNT 291 K/uL (130-400); RED CELL DISTRIBUTION WIDTH CV 11.9 % (11.5-14.5); RED CELL DISTRIBUTION WIDTH SD 37.4 fL (36.4-46.3); WHITE BLOOD COUNT 8.25 K/uL (4.8-10.8)
[2018-02-22 23:40] LABS: CALCIUM 8.4 mg/dl (8.5-10.1); CREATININE 0.73 mg/dl (0.60-1.20); POTASSIUM 3.9 mmol/L (3.5-5.1)
[2018-02-23] MEDS ORDERED: SODIUM CHLORIDE 0.9% 500ML 500 ML IV STA (00:08)
[2018-02-23] MEDS ORDERED: BLAC1CAP5 PO (00:20)
[2018-02-23 00:30] VITALS: BP 108/75; PULSE 65; O2SAT 98
== END 2018-02-23 00:58 | disposition home or self-care (01) ==
LOC: C.EDB 22:38
DX: R53.83 Other fatigue (principal); E03.9 Hypothyroidism, unspecified; K21.9 Gastro-esophageal reflux disease without esophagitis; Z87.442 Personal history of urinary calculi; Z82.49 Family history of ischemic heart disease and other diseases of the circulatory system; Z84.1 Family history of disorders of kidney and ureter; Z82.0 Family history of epilepsy and other diseases of the nervous system; Z79.899 Other long term (current) drug therapy; Z88.5 Allergy status to narcotic agent; Z88.0 Allergy status to penicillin

== ENCOUNTER → 2018-02-24 | Outpatient (CLI) | payer OTHER ==
[~2018-02-24] MED LIST changes: +BLAC1CAP5 PO
[2018-02-24 18:11] LABS: TRANSFERRIN 253 mg/dl (200-360)
== END | disposition home or self-care (01) ==
LOC: C.LABMFLN 15:06
PROVIDERS: ATTEND Family Medicine
DX: D64.9 Anemia, unspecified (principal)

== ENCOUNTER → 2018-05-29 | Outpatient (CLI) | payer OTHER | LOC: C.LABMFLN 14:39 | PROVIDERS: ATTEND Family Medicine | DX: E03.9 Hypothyroidism, unspecified (principal) ==